=== PATIENT | female | born 1995 | race Caucasian/White ===

== ENCOUNTER 2020-09-16 08:42 | Emergency (ER) | payer MEDICAID ==
[2020-09-16] MEDS ORDERED: Lactated Ringers 1,000 ML IV ONE (09:01)
--- NOTE | 2020-09-16 09:12 | EDM.PDOC ---
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 Denies: Old Records History Limitations: Reports: Other (no old records) - History of Present Illness INITIAL COMMENTS - FREE TEXT/NARRATIVE: 24 yo female delivered via 10 d ago via head well puller in [place] her 3rd baby. Is being tx'd currently for mastitis and endometritis with dicloxacillin and doxycycline. Has no issues with her first 2 pregnancies. This morning developed heavy vaginal bleeding and was going to return to [place], but was light-headed so EMS was called and brought her here as it was closer. Tachy en route and IV started per EMS. Onset: Today Onset Date: 09/16/20 Duration: Minutes: Location: Reports: Pelvis Quality: Reports: Other (minimal pain) Severity: Mild Improves with: Reports: None Worsens with: Reports: Other (bleeding worse ? with standing) Context: Reports: Other (See HPI) Associated Symptoms: Reports: Other (light headed). Denies: Fever/Chills, Nausea/Vomiting Treatments OCCUPATIONAL THERAPIST PER DIEM: Reports: Other (see below) (IV per EMS) - Related Data Allergies Allergy/AdvReac Type Severity Reaction Status Date / Time No Known Allergies Allergy Verified 09/16/20 08:47 Home Meds: Home Meds Cholecalciferol (Vitamin D3) [Vitamin D] 1 tab PO DAILY 09/16/20 [History] Dicloxacillin 500 mg PO QID 09/16/20 [History] Doxycycline [Doxycycline Hyclate] 100 mg PO BID 09/16/20 [History] Lactobacillus Combo No.10 [Probiotic] 1 tab PO DAILY 09/16/20 [History] Pnv No.95/Ferrous Fum/Folic AC [ Caplet] 1 tab PO DAILY 09/16/20 [History] Past Medical History Genitourinary History: Reports: UTI, Recurrent - Past Surgical History Head Surgeries/Procedures: Reports: None Female Surgical History: Reports: None Dermatological Surgical History: Reports: None Social & Family History - Tobacco Use Tobacco Use Status *Q: Never Tobacco User - Caffeine Use Caffeine Use: Reports: Coffee - Recreational Drug Use Recreational Drug Use: No ED ROS GENERAL - Review of Systems Review Of Systems: See Below Constitutional: Reports: No Symptoms HEENT: Reports: No Symptoms Respiratory: Reports: No Symptoms Cardiovascular: Reports: Lightheadedness Endocrine: Reports: No Symptoms GI/Abdominal: Reports: No Symptoms : Reports: Other (heavy vag bleeding) Musculoskeletal: Reports: No Symptoms Skin: Reports: No Symptoms Neurological: Reports: No Symptoms Psychiatric: Reports: No Symptoms ED EXAM - Physical Exam Exam: See Below Exam Limited By: No Limitations General Appearance: Alert, WD/WN, Mild Distress Eye Exam: Bilateral Eye: Normal Inspection Ears: Normal External Exam, Normal Canal, Hearing Grossly Normal Nose: Normal Inspection, No Blood Throat/Mouth: Normal Inspection, Normal Lips, Normal Oropharynx, Normal Voice, No Airway Compromise Head: Atraumatic, Normocephalic Neck: Normal Inspection Respiratory/Chest: No Respiratory Distress, Lungs Clear, Normal Breath Sounds, No Accessory Muscle Use Cardiovascular: Regular Rate, Rhythm, No Edema, Tachycardia GI/Abdominal Exam: Normal Bowel Sounds, Soft, Non-Tender, No Distention Extremities: Normal Inspection, Normal Range of Motion, Non-Tender, No Pedal Edema Neurological: Alert, Oriented, CN II-XII Intact, Normal Cognition, No Motor/Sensory Deficits Psychiatric: Normal Affect, Normal Mood Skin Exam: Warm, Dry, Intact, Normal Color, No Rash Course - Vital Signs Last Recorded V/S: Last Vital Signs Temp 38.9 C H 09/16/20 08:52 Pulse 105 H 09/16/20 11:12 Resp 28 H 09/16/20 11:12 BP 107/51 L 09/16/20 11:12 Pulse Ox 97 09/16/20 11:12 - Orders/Labs/Meds Labs: Laboratory Tests 09/16/20 09/16/20 09/16/20 Range/Units 09:01 09:01 09:01 WBC 11.9 H (4.5-11.0) K/uL RBC 3.10 L (3.30-5.50) M/uL Hgb 8.6 L (12.0-15.0) g/dL Hct 26.5 L (36.0-48.0) % MCV 86 (80-98) fL MCH 28 (27-31) pg MCHC 33 (32-36) % Plt Count 234 (150-400) K/uL Neutrophils % (Manual) 75 H (36-66) % Band Neutrophils % 10 (5-11) % Lymphocytes % (Manual) 5 L (24-44) % Monocytes % (Manual) 9 H (2-6) % Eosinophils % (Manual) 1 L (2-4) % Sodium 140 (140-148) mmol/L Potassium 3.5 L (3.6-5.2) mmol/L Chloride 108 (100-108) mmol/L Carbon Dioxide 19 L (21-32) mmol/L Anion Gap 16.5 H (5.0-14.0) mmol/L BUN 9 (7-18) mg/dL Creatinine 0.7 (0.6-1.0) mg/dL Est Cr Clr Drug Dosing 121.55 mL/min Estimated GFR (MDRD) > 60 (>60) Glucose 94 (74-106) mg/dL Calcium 7.4 L (8.5-10.1) mg/dL Blood Type A NEGATIVE Gel Antibody Screen Positive A* Antibody Identification Cancelled Meds: Medications Discontinued Medications Generic Name Dose Route Start Last Admin Trade Name Freq PRN Reason Stop Dose Admin Gentamicin Sulfate 0 mg 09/16/20 10:30 Gentamicin 40 Mg/Ml 2 Ml Vial IV 09/16/20 10:31 .Pharmacy to Dose SHREE Lactated Ringer's 1,000 mls @ 1,000 mls/hr 09/16/20 09:01 09/16/20 09:12 Ringers, Lactated IV 09/16/20 10:00 1,000 mls/hr BOLUS ONE Administration Lactated Ringer's 1,000 mls @ 125 mls/hr 09/16/20 10:15 09/16/20 10:21 Ringers, Lactated IV 125 mls/hr ASDIRECTED SHREE Administration Clindamycin Phosphate 900 mg/ 106 mls @ 200 mls/hr 09/16/20 10:30 09/16/20 10:42 Sodium Chloride IV 200 mls/hr Q8H SHREE Administration Gentamicin Sulfate 340 mg/ 158.5 mls @ 150 mls/hr 09/16/20 11:30 09/16/20 11:19 Sodium Chloride IV 150 mls/hr Q24H SHREE Administration Ibuprofen 600 mg 09/16/20 10:11 09/16/20 10:21 Ibuprofen 600 Mg Tab PO 09/16/20 10:12 600 mg ONETIME ONE Administration - Radiology Interpretation Free Text/Narrative:: Pelvic US- - Re-Assessments/Exams Free Text/Narrative Re-Assessment/Exam: 09/16/20 09:35 Called OB process controller for assistance with this patient, here now at [id number] Departure - Departure Time of Disposition: 15:00 Disposition: DC/Tfer to [facility] 02 Clinical Impression: Retained products of conception, Endometritis following delivery, Mastitis, Delayed hemorrhage - Discharge Information Referrals: PCP,None [Primary Care Provider] - Forms: ED Department Discharge Sepsis Event Note (ED) - Evaluation Sepsis Screening Result: Possible Severe Sepsis Risk
[2020-09-16] MEDS ORDERED: Ibuprofen 600 MG Tab PO ONE (10:11)
[2020-09-16] MEDS ORDERED: Lactated Ringers 1,000 ML IV SCH (10:15)
--- NOTE | 2020-09-16 10:29 | CRLUS ---
INDICATION: Late hemorrhage. TECHNIQUE: Transabdominal pelvic ultrasound. Endovaginal imaging not performed due to patient discomfort. COMPARISON: None available. FINDINGS: Anteverted uterus measuring 16.2 x 8.2 x 10.4 cm. Heterogeneous hypoechoic material throughout the endometrial canal, measuring up to 1.9 cm in thickness. No internal blood flow identified on color Doppler on the provided sonographic images. The ovaries are nonvisualized bilaterally. No pelvic free fluid identified. IMPRESSION: Extensive heterogeneous hypoechoic material distending the endometrial canal, likely corresponding with history of hemorrhage. While internal blood flow is not identified on the provided images, retained products of conception is still a possibility. Dictated by Toribio Walker MD @ 09/16/2020 10:28:18 AM Dictated by: Toribio Walker MD @ 09/16/2020 10:28:28 (Electronically Signed)
[2020-09-16] MEDS ORDERED: Gentamicin 40 MG/ML 2 ML Vial IV SCH (10:30)
[2020-09-16] MEDS ORDERED: Clindamycin Phosphate 900 MG in Sodium Chloride 0.9% 100 ML IV SCH (10:30)
--- NOTE | 2020-09-16 10:53 | EDM.PDOC ---
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 Denies: Old Records History Limitations: Reports: No Limitations, Other (no old records) - History of Present Illness INITIAL COMMENTS - FREE TEXT/NARRATIVE: 24 yo female delivered via 10 d ago via bag machine adjuster in [place] her 3rd baby. Is being tx'd currently for mastitis and endometritis with dicloxacillin and doxycycline. Has no issues with her first 2 pregnancies. This morning developed heavy vaginal bleeding and was going to return to [place], but was light-headed so EMS was called and brought her here as it was closer. Tachy en route and IV started per EMS. 09/16/20 I was called in by ER to evaluate obstetrical needs. Patient is a who delivered vaginally on 09/06/20. She had spontaneous onset of labor and delivered in [place], [place] after being in the hospital for 3 hours. She was GBS positive and received 1 dose of IV antibiotics in labor. She is currently being treated for bilateral mastitis with dicloxicillin and endometritis with doxycycline po at home. She has been febrile for several days, since about 09/11. She states the fever and chills have gotten worse as the days have gone on. She has had normal bleeding until this morning when she stood up and has had a constant leakage of blood, filling several pads this am, no clots, no foul smell. On review of clinic visit she did have a SBC as high as over 17, improved today. Hgb is down today. BP low in ambulance and here but is stable since fluids started. UC was negative in [place]. Onset: Today Onset Date: 09/16/20 Duration: Getting Worse Location: Reports: Back, Pelvis Quality: Reports: Other (minimal pain) Severity: Moderate Improves with: Reports: Medication Worsens with: Reports: None, Other (bleeding worse ? with standing) Context: Reports: Other (See HPI) Associated Symptoms: Reports: Fever/Chills, Loss of Appetite, Malaise, Weakness. 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: Reports: Other (see below) (IV per EMS) - Related Data Allergies Allergy/AdvReac Type Severity Reaction Status Date / Time No Known Allergies Allergy Verified 09/16/20 08:47 Home Meds: Home Meds Cholecalciferol (Vitamin D3) [Vitamin D] 1 tab PO DAILY 09/16/20 [History] Dicloxacillin 500 mg PO QID 09/16/20 [History] Doxycycline [Doxycycline Hyclate] 100 mg PO BID 09/16/20 [History] Lactobacillus Combo No.10 [Probiotic] 1 tab PO DAILY 09/16/20 [History] Pnv No.95/Ferrous Fum/Folic AC [ Caplet] 1 tab PO DAILY 09/16/20 [History] Past Medical History Genitourinary History: Reports: UTI, Recurrent 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: Reports: Other (See Below) (endometritis, mastitis) : 3 Para: 3 LMP (Approximate): Other (See Below) (10 days ) - Past Surgical History Head Surgeries/Procedures: Reports: None Female Surgical History: Reports: None Dermatological Surgical History: Reports: None Social & Family History - Tobacco Use Tobacco Use Status *Q: Never Tobacco User - Caffeine Use Caffeine Use: Reports: Coffee - Recreational Drug Use Recreational Drug Use: No ED ROS GENERAL - Review of Systems Review Of Systems: See Below Constitutional: Reports: Fever, Malaise, Weakness, Fatigue HEENT: Reports: No Symptoms Respiratory: Reports: No Symptoms Cardiovascular: Reports: Lightheadedness Endocrine: Reports: No Symptoms GI/Abdominal: Reports: Abdominal Pain : Reports: Flank Pain Musculoskeletal: Reports: No Symptoms Skin: Reports: No Symptoms Neurological: Reports: No Symptoms Psychiatric: Reports: No Symptoms Hematologic/Lymphatic: Reports: Anemia Immunologic: Reports: No Symptoms ED EXAM - Physical Exam Exam: See Below Exam Limited By: No Limitations General Appearance: Alert, No Apparent Distress. No: Lethargic Eye Exam: Bilateral Eye: Abnormal EOM, PERRL Throat/Mouth: Normal Inspection, Other (dry lips, dry mouth) Head: Atraumatic, Normocephalic Neck: Normal Inspection, Supple, Full Range of Motion Respiratory/Chest: No Respiratory Distress, Lungs Clear, Normal Breath Sounds Cardiovascular: Normal Peripheral Pulses, No Edema, Tachycardia GI/Abdominal Exam: Normal Bowel Sounds, Soft, Pelvis Stable, Tender (Female) Exam: Other (dark red vaginal bleeding, moderate, no clots, no foul odor, no internal exam) Back Exam: Normal Inspection, Full Range of Motion Extremities: Normal Inspection, Normal Range of Motion, Non-Tender, No Pedal Edema Neurological: Alert, Oriented, Normal Cognition, Normal Gait Psychiatric: Normal Affect, Normal Mood Skin Exam: Warm, Intact, Increased Warmth ED DELIVERY OF - General Source: Reports: Patient Course - Vital Signs Last Recorded V/S: Last Vital Signs Temp 38.9 C H 09/16/20 08:52 Pulse 119 H 09/16/20 08:52 Resp 14 09/16/20 08:52 BP 104/39 L 09/16/20 08:52 Pulse Ox 100 09/16/20 08:52 - Orders/Labs/Meds Orders: Active Orders 24 hr Category Date Time Status ANTIBODY IDENTIFICATION [BBK] Stat Lab 09/16/20 09:01 Results CULTURE BLOOD [BC] Urgent Lab 09/16/20 10:07 Received CULTURE BLOOD [BC] Urgent Lab 09/16/20 10:13 Received PATIENT RETYPE [BBK] Stat Lab 09/16/20 09:01 Results TYPE AND SCREEN [BBK] Stat Lab 09/16/20 09:01 Results UA W/MICROSCOPIC [URIN] Stat Lab 09/16/20 09:30 Ordered Clindamycin Phosphate [Cleocin] 900 mg Med 09/16/20 10:30 Active Sodium Chloride 0.9% [Normal Saline] 100 ml IV Q8H Gentamicin Med 09/16/20 10:30 Ordered See Dose Instructions IV .Pharmacy to Dose Lactated Ringers [Ringers, Lactated] 1,000 ml Med 09/16/20 10:15 Active IV ASDIRECTED Blood Culture x2 Reflex Set [OM.PC] Urgent Oth 09/16/20 09:50 Ordered Medication Orders Gentamicin Sulfate (Gentamicin 40 Mg/Ml 2 Ml Vial) 0 mg IV .Pharmacy to Dose [facility] Lactated Ringer's (Ringers, Lactated) 1,000 mls @ 125 mls/hr IV ASDIRECTED SHREE Last Admin: 09/16/20 10:21 Dose: 125 mls/hr Documented by: COLETTE Clindamycin Phosphate 900 mg/ (Sodium Chloride) 106 mls @ 200 mls/hr IV Q8H [facility] Last Admin: 09/16/20 10:42 Dose: 200 mls/hr Documented by: COLETTE Labs: Laboratory Tests 09/16/20 09/16/20 09/16/20 Range/Units 09:01 09:01 09:01 WBC 11.9 H (4.5-11.0) K/uL RBC 3.10 L (3.30-5.50) M/uL Hgb 8.6 L (12.0-15.0) g/dL Hct 26.5 L (36.0-48.0) % MCV 86 (80-98) fL MCH 28 (27-31) pg MCHC 33 (32-36) % Plt Count 234 (150-400) K/uL Neutrophils % (Manual) 75 H (36-66) % Band Neutrophils % 10 (5-11) % Lymphocytes % (Manual) 5 L (24-44) % Monocytes % (Manual) 9 H (2-6) % Eosinophils % (Manual) 1 L (2-4) % Sodium 140 (140-148) mmol/L Potassium 3.5 L (3.6-5.2) mmol/L Chloride 108 (100-108) mmol/L Carbon Dioxide 19 L (21-32) mmol/L Anion Gap 16.5 H (5.0-14.0) mmol/L BUN 9 (7-18) mg/dL Creatinine 0.7 (0.6-1.0) mg/dL Est Cr Clr Drug Dosing 121.55 mL/min Estimated GFR (MDRD) > 60 (>60) Glucose 94 (74-106) mg/dL Calcium 7.4 L (8.5-10.1) mg/dL Blood Type A NEGATIVE Gel Antibody Screen Positive A* Meds: Medications Generic Name Dose Route Start Last Admin Trade Name Freq PRN Reason Stop Dose Admin Gentamicin Sulfate 0 mg 09/16/20 10:30 Gentamicin 40 Mg/Ml 2 Ml Vial IV .Pharmacy to Dose SHREE Lactated Ringer's 1,000 mls @ 125 mls/hr 09/16/20 10:15 09/16/20 10:21 Ringers, Lactated IV 125 mls/hr ASDIRECTED SHREE Administration Clindamycin Phosphate 900 mg/ 106 mls @ 200 mls/hr 09/16/20 10:30 09/16/20 10:42 Sodium Chloride IV 200 mls/hr Q8H SHREE Administration Discontinued Medications Generic Name Dose Route Start Last Admin Trade Name Freq PRN Reason Stop Dose Admin Lactated Ringer's 1,000 mls @ 1,000 mls/hr 09/16/20 09:01 09/16/20 09:12 Ringers, Lactated IV 09/16/20 10:00 1,000 mls/hr BOLUS ONE Administration Ibuprofen 600 mg 09/16/20 10:11 09/16/20 10:21 Ibuprofen 600 Mg Tab PO 09/16/20 10:12 600 mg ONETIME ONE Administration - Radiology Interpretation Free Text/Narrative:: US results reviewed with Dr Kaleb [place], endometrial canal 1.9 cm, fluid and debris filled, no blood flow. Departure - Departure Time of Disposition: 10:38 (1038 time of acceptance) Disposition: DC/Tfer to [facility] 02 Clinical Impression: Retained products of conception, Endometritis following delivery, Mastitis, Delayed hemorrhage - Discharge Information *PRESCRIPTION DRUG MONITORING PROGRAM REVIEWED*: Not Applicable *COPY OF PRESCRIPTION DRUG MONITORING REPORT IN PATIENT SOY: Not Applicable Referrals: PCP,None [Primary Care Provider] - Forms: ED Department Discharge Sepsis Event Note (ED) - Evaluation Sepsis Screening Result: Possible Severe Sepsis Risk Current Stage of Sepsis: Sepsis (possible sepsis with vital signs and clinical presentation, blood cultures ordered) Possible Source of Sepsis: Other (endometritis) - Focused Exam Sepsis Event Note Statement: Focused Sepsis Exam Completed Vital Signs: Vital Signs Temp Pulse Resp BP Pulse Ox 09/16/20 08:52 38.9 C H 119 H 14 104/39 L 100 09/16/20 08:50 38.9 C H 119 H 14 104/39 L 100 ED Communication - ED Communication Date/Time Date: 09/16/20 Time Called: 10:38 - Problem List & Annotations (1) Retained products of conception SNOMED Code(s): 805655525 Code(s): AAJ3224 - Status: Acute Current Visit: Yes (2) Endometritis following delivery SNOMED Code(s): 405213150 Code(s): O86.12 - ENDOMETRITIS FOLLOWING DELIVERY Status: Acute Current Visit: Yes (3) Mastitis SNOMED Code(s): 618815407 Code(s): N61.0 - MASTITIS WITHOUT ABSCESS Status: Acute Current Visit: Yes (4) Delayed hemorrhage SNOMED Code(s): 33343553 Code(s): O72.2 - DELAYED AND SECONDARY HEMORRHAGE Status: Acute Current Visit: Yes - Problem List Review Problem List Initiated/Reviewed/Updated: Yes - My Orders Last 24 Hours: My Active Orders 09/16/20 09:30 UA W/MICROSCOPIC [URIN] Stat 09/16/20 09:50 Blood Culture x2 Reflex Set [OM.PC] Urgent 09/16/20 10:07 CULTURE BLOOD [BC] Urgent 09/16/20 10:13 CULTURE BLOOD [BC] Urgent 09/16/20 10:15 Lactated Ringers [Ringers, Lactated] 1,000 ml IV ASDIRECTED 09/16/20 10:30 Clindamycin Phosphate [Cleocin] 900 mg Sodium Chloride 0.9% [Normal Saline] 100 ml IV Q8H Gentamicin See Dose Instructions IV .Pharmacy to Dose - Assessment/Plan Last 24 Hours: My Active Orders 09/16/20 09:30 UA W/MICROSCOPIC [URIN] Stat 09/16/20 09:50 Blood Culture x2 Reflex Set [OM.PC] Urgent 09/16/20 10:07 CULTURE BLOOD [BC] Urgent 09/16/20 10:13 CULTURE BLOOD [BC] Urgent 09/16/20 10:15 Lactated Ringers [Ringers, Lactated] 1,000 ml IV ASDIRECTED 09/16/20 10:30 Clindamycin Phosphate [Cleocin] 900 mg Sodium Chloride 0.9% [Normal Saline] 100 ml IV Q8H Gentamicin See Dose Instructions IV .Pharmacy to Dose Assessment:: 09/16/20 Febrile 10 days patient with endometritis and retained products with delayed hemorrhage Hgb 8.6, stable Bleeding stable currently, light flow laying down Plan: 09/16/[address] Manuel from [facility]. He will accept transfer for a D & C. I have drawn blood cultures and started her on IV an tibiotics for endometritis including IV clindamycin and gentamicin. Transfer by ambulance in stable condition. Continue IV fluids, NPO.
[2020-09-16] MEDS ORDERED: Gentamicin 450 MG in Sodium Chloride 0.9% 250 ML IV SCH (11:00)
[2020-09-16] MEDS ORDERED: SODIUM CHLORIDE 0.9% IV SCH (11:30)
[2020-09-16] MEDS ORDERED: GENTAMICIN IV SCH (11:30)
== END 2020-09-16 11:44 ==
LOC: JP.ED 08:42
DX: O72.2 Delayed and secondary postpartum hemorrhage (principal); O91.22 Nonpurulent mastitis associated with the puerperium; O86.12 Endometritis following delivery; Z37.0 Single live birth
CPT/HCPCS: 36415; 76856; 80048; 85025; 86850; 86900; 86901; 87040; 96365; 96367; 99284; 99285; A9270; J1580; J3490; J7120